=== PATIENT | male | born 2000 | race Caucasian/White ===

== ENCOUNTER → 2024-08-05 11:43 | Emergency (ER) | payer OTHER, SELFPAY | END | disposition left against medical advice (07) | PROVIDERS: Emergency Provider Registered Nurse | DX: Z53.21 Procedure and treatment not carried out due to patient leaving prior to being seen by health care provider (principal) | CPT/HCPCS: 99199 ==

== ENCOUNTER 2024-08-05 12:11 | Emergency (ER) | payer OTHER, SELFPAY ==
--- NOTE | ~2024-08-05 | US_ITS ---
EXAMINATION: US scrotum doppler DATE: 08/05/2024 14:39 INDICATION: Scrotal swelling. TECHNIQUE: Grayscale and Doppler ultrasound images of the testes were obtained. COMPARISON: None. FINDINGS: The right testis measures 7.6 x 5.7 x 6.8 cm. The left testis measures 3.5 x 1.8 x 2.6 cm. In the right testis, there is a 6.8 x 5.4 x 5.5 cm heterogeneous mass with internal vascular flow The re is normal vascular flow to left testis. The right epididymis demonstrates increased vascular flow. The left epididymis is normal with normal vascular flow. There is no hydrocele. There is a right-speedy ed varicocele. IMPRESSION: 1. 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 Reviewed, dictated and finalized at location A. TUTOR
--- OUTSIDE RECORDS SUMMARY | 2024-08-05 12:13 | XMS_ITS | Clinical Summary ---
Author Organization [facility] Address [address] [place] [address] Care Team Providers Care Solar Thermal Installer Name Role Phone Randy Rowan MD Primary Care Provider [phone] Allergies Active Allergy Reactions Criticality Noted Date Comments Amoxicillin Rash 04/15/2019 Medications Ibuprofen (CHILDRENS ADVIL PO) Take 2 tsp by mouth as needed. Active Active Problems No known active problems Immunizations Immunization Administration Dates Next Due DTAP VACCINE 10/13/2006, 3,03/16/2002,2001,2001 HIB Vaccine (PRP-T) 10/13/2006, 2,02/02/2002,2001 Hepatitis A Vaccine 03/19/2010,06/21/2007 Hepatitis B Vaccine 07/04/2002,2001,2001 Inactivated Polio Vaccine 10/13/2006,08/2001,02/02/2002,2001 Influenza Vaccine Nasal 04/08/2011 MMR Vaccine 10/10/2002 MMR/Varicella Combined Vaccine 10/13/2006 Pneumococcal Vaccine Peds - 7 Valent ,03/16/2002,02/02/2002,2001 Varicella Vaccine Live 10/10/2002 Social History Tobacco Use Types Packs/Day Years Used Date Smoking Tobacco: Every Day Cigarettes Passive Smoke Exposure: Current Smokeless Tobacco: Never Alcohol Use Standard Drinks/Week Comments Not Asked 0 (1 standard drink = 0.6 oz pur e alcohol) Sex and Gender Information Value Date Recorded Sex Assigned at Not on file 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 Gender Identity Not on file Sexual Orientation Not on file Last Filed Vital Signs Vital Sign Reading Time Taken Comments Blood Pressure 121/70 12/01/2022 11:14 AM CDT Pulse 63 12/01/2022 11:14 AM CDT Temperature 36.6 C (97.9 F) 12/01/2022 11:14 AM CDT Respiratory Rate 18 12/01/2022 11:14 AM CDT Oxygen Saturation 99% 12/01/2022 11:14 AM CDT Inhaled Oxygen Concentration - - Weight 75.3 kg (166 lb) 12/01/2022 11:14 AM CDT Height 182.9 cm (6') 12/01/2022 11:14 AM CDT Body Mass Index 22.51 12/01/2022 11:14 AM CDT Plan of Treatment Health Maintenance Due Date Last Done Comments Hepatitis C Virus (HCV) Screening 2001 Meningococcal B Immunization (1 of 2 - Standard) 2017 Pneumococcal Immunization Combined (1 of 2 - PCV) 2020 10/10/2002, 10/10/2002, 03/16/2002, Additional history exists DTaP/Tdap/Td Immunization (7 - Td or Tdap) 04/17/2023 04/17/2013, 10/13/2006, 10/10/2002, Additional history exists Influenza Immunization (#1) 02/13/202403/16, 04/09/2017, 04/03/2016, Additional history exists SARS-COV-2 Immunization ( season) 2024 06/03/2021, 10/16/2020, 09/20/2020 Respiratory Syncytial Virus (RSV) Immunization (Adult) (1 - 1-dose 75+ series) 2076 Hepatitis B Immunization Completed 003, 2001, 2001 Measles Mumps Rubella (MMR) Immunization Discontinued 10/13/2006, 10/13/2006, 10/10/2002 Polio (IPV) Immunization Discontinued 007, 03/16/2002, 02/02/2002, Additional history exists Varicella Immunization Discontinued 7, 10/13/2006, 10/10/2002 Hepatitis A Immunization Discontinued 010, 03/19/2010, 06/21/2007 Human Papillomavirus (HPV) Immunization Completed 12/11/2014, 07/27/2014, 06/12/2014 Meningococcal Immunization (ACWY) Completed 12/07/2017 Rotavirus Immunization Aged Out No lo nger eligible based on patient's age to complete this topic Insurance [facility] Care Teams Solar Thermal Installer Relationship Specialty Start Date End Date Randy Rowan MD [address]: [address] [place] [address] PCP - General Family Medicine 04/15/19
[2024-08-05 12:14] VITALS: BP 135/93; PULSE 56; RESP 16; TEMP 36.4; O2SAT 100
[2024-08-05 14:03] LABS: Add Urine Microscopic? YES; Appearance Urine Clear (Clear); Bacteria Urine None Seen /hpf; Bilirubin Urine Negative (Negative); Blood Urine Negative (Negative); Color Urine Yellow (Yellow); Glucose Urine UA Negative (Negative); Ketones Urine Negative (Negative); Leukocyte Esterase Ur Negative LEU/UL (Negative); Need Manual Microscopic Reviewed; Nitrate Urine Negative (Negative); Non Pathogenic Casts 0-2; Protein Urine Trace mg/dL (Negative); RBC Urine 0-2 /hpf (0-2); Specific Grav Ur 1.033 (1.001-1.035); Squamous Epithelial Cell Urine None Seen /hpf (Few); Urobilinogen Urine 0.2 mg/dL (<2.0); WBC Urine 0-5 /hpf (0-3)
--- NOTE | 2024-08-05 14:27 | ED_ITS ---
HPI - General Adult General Chief complaint: Urogenital-Male Stated complaint: Swelling in testicle Time Seen by Provider: 08/05/24 13:58 History of Present Illness HPI narrative: 23-year-old male present to the emergency department for evaluation for scrotal swelling for the last 6 weeks. The patient denies any falls or injuries. Patient denies any high-risk sexual behavior. Patient denies any prior history of varicocele hydrocele. Patient states that he had swelling for the last 6 weeks but did have some pain on . Patient states the pain was sharp on but then has since improved to a mild dull ache. Patient denies any significant pain at this time. Related Data Allergies Allergy/AdvReac Type Severity Reaction Status Date / Time amoxicillin Allergy Mild Rash Verified 08/05/24 15:33 Review of Systems Review of Systems: All systems reviewed & are unremarkable except as noted in HPI and below Exam Narrative: APPEARANCE: Well appearing, no pain, no distress, well-nourished. HEAD: normocephalic, atraumatic. EYES: PERRLA/EOMI, conjunctivae clear. NOSE: Normal no drainage EARS:TMS clear with good light reflex. THROAT: Pharynx clear, no exudate. NECK: Supple. No adenopathy, no masses. RESPIRATORY: Airway patent, respirations nonlabored. Clear to auscultation bilaterally, no rales, rhonchi, wheezing. CARDIOVASCULAR: Regular rate and rhythm without murmurs rubs or gallops. ABDOMINAL: Soft, nontender, nondistended, normal bowel sounds MUSCULOSKELETAL: Moves all extremities. Strength/ROM intact, No edema, No calf tenderness. NEURO: Alert. Cranial nerves II through XII intact. Good gait. Good coordination SKIN: Warm, dry. Normal Color General exam: Bilateral scrotal swelling and firmness Course Vital Signs Vital signs: Vital Signs Temperature 97.5 F L 08/05/24 12:14 Pulse Rate 56 L 08/05/24 12:14 Respiratory Rate 16 08/05/24 12:14 Blood Pressure 135/93 H 08/05/24 12:14 Pulse Oximetry 100 08/05/24 12:14 Oxygen Delivery Room Air 08/05/24 12:14 Temperature 97.5 F L 08/05/24 12:14 Pulse Rate 56 L 08/05/24 12:14 Respiratory Rate 16 08/05/24 12:14 Blood Pressure 135/93 H 08/05/24 12:14 Pulse Oximetry 100 08/05/24 12:14 Oxygen Delivery Room Air 08/05/24 12:14 Medical Decision Making [facility] Narrative Medical decision making narrative: 23-year-old male present to the emergency department for evaluation for testicu lar pain. UA was negative, ultrasound was concerning for a 6.8 cm right testicular mass concerning for neoplasm. I did discuss the case with Urology, Dr. Flowers, and they will have follow-up with the patient as outpatient. Patient should anticipate getting a phone call from the urology office on Wednesday. Patient was updated on the diagnosis and concern for cancer. Patient was advised to call the office on Wednesday if he does not hear from them. Patient was encouraged to not be lost to follow-up. Patient declined any additional medications for pain control. Differential Diagnosis Differential Diagnosis: Varicocele, hydrocele, testicular torsion, testicular mass, epididymitis, UTI Vital Signs Vital Signs: Vital Signs Temperature 97.5 F L 08/05/24 12:14 Pulse Rate 56 L 08/05/24 12:14 Respiratory Rate 16 08/05/24 12:14 Blood Pressure 135/93 H 08/05/24 12:14 Pulse Oximetry 100 08/05/24 12:14 Oxygen Delivery Room Air 08/05/24 12:14 Temperature 97.5 F L 08/05/24 12:14 Pulse Rate 56 L 08/05/24 12:14 Respiratory Rate 16 08/05/24 12:14 Blood Pressure 135/93 H 08/05/24 12:14 Pulse Oximetry 100 08/05/24 12:14 Oxygen Delivery Room Air 08/05/24 12:14 Lab Data Lab results reviewed: Yes I reviewed the patient's lab results. Labs: Lab Results 08/05/24 Range/Units 13:41 Urine Color Yellow (Yellow) Urine Appearance Clear (Clear) Urine pH 6.0 (5.0-9.0) Ur Specific [place] 1.033 (1.001-1.035) Urine Protein Trace (Negative) mg/dL Urine Glucose (UA) Negative (Negative) mg/dL Urine Ketones Negative (Negative) mg/dL Ur Blood (Man) Negative (Negative) Urine Nitrate Negative (Negative) Urine Bilirubin Negative (Negative) Urine Urobilinogen 0.2 (<2.0) mg/dL Add Ur Microanalysis Reviewed Leukocyte Esterase Rfl Negative (Negative) TAI/UL Urine RBC 0-2 (0-2) /hpf Urine WBC 0-5 (0-3) /hpf Ur Squamous Epith Cells None seen (Few) /hpf Urine Bacteria None seen /hpf Urine Casts 0-2 C. trachomatis (PCR) Not detected (NOT DETECTE) N. gonorrhoeae (PCR) Not detected (NOT DETECTE) Imaging Data Radiologist's impression: Impressions Scrotum Ultrasound 08/05/24 14:39 IMPRESSION: 1. 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 Discharge Plan Discharge Clinical Impression: Hx of testicular mass Patient Disposition: Home, Self-Care Condition: Stable Instructions: Antibiotic Form, Testicle Pain (ED) Additional Instructions: Your ultrasound was concerning for a right testicular mass. You will need to have close follow-up with Urology. The urology office states they will call you on Wednesday. If you do not hear from them then I recommend you call their office. Tylenol and ibuprofen for pain control. If you have any worsening symptoms then please call or return to the emergency department. Patient Language: Tajik Follow-up/Referrals: Chiki Flowers MD [Physician] - PHYSICIAN,HAIR BOILER OPERATOR [Primary Care Provider] -
--- OUTSIDE RECORDS SUMMARY | 2024-08-05 14:38 | XMS_ITS | Clinical Summary ---
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
[2024-08-05 16:12] LABS: Chlamydia trachomatis NOT DETECTED (NOT DETECTE); Neisseria gonorrhoeae PCR NOT DETECTED (NOT DETECTE)
== END 2024-08-05 15:35 | disposition home or self-care (01) ==
PROVIDERS: Student in an Organized Health Care Education/Training Program; Emergency Provider Emergency Medicine
DX: N50.89 Other specified disorders of the male genital organs (principal)
CPT/HCPCS: 76870; 81001; 87491; 87591; 93976; 99284